=== PATIENT | female | born 1990 | race African-American/Black ===

== ENCOUNTER 2022-04-18 09:33 | Inpatient (IN) | payer OTHER ==
[~2022-04-18] VITALS: Ht 165.1 cm; Wt 150.3 kg
[2022-04-18 09:52] VITALS: BP 147/76
[2022-04-18 10:18] LABS: BASO % 0.7 % (0.0-1.0); EOS % 0.7 % (1.0-4.0); HEMATOCRIT 29.8 % (37.0-47.0); LYMPH # 2.3 10*3/uL (1.3-4.4); LYMPH % 40.9 % (27.0-41.0); MEAN CELL VOLUME 67.3 fl (81.0-99.0); MEAN CORPUSCULAR HGB 19.9 pg (27.0-31.0); MEAN CORPUSCULAR HGB CONC 29.5 g/dl (33.0-37.0); MONO # 0.6 10*3/uL (0.1-1.0); MONO % 10.7 % (3.0-9.0); NEUT # 2.6 10*3/uL (2.3-7.9); NEUT % 46.8 % (47.0-73.0); PLATELET COUNT AUTOMATED 203 10*3/uL (130-400); RED BLOOD COUNT 4.43 10*6/uL (4.10-5.10); RED CELL DISTRI WIDTH 20.6 % (0-14.5); WHITE BLOOD COUNT 5.5 10*3/uL (4.8-10.8)
[2022-04-18 10:21] LABS: BILIRUBIN Negative (Negative); BLOOD Negative (Negative); CLARITY Clear (Clear); COLOR Yellow (Yellow); GLUCOSE Negative (Negative); KETONE Negative (Negative); LEUKO ESTERASE Negative (Negative); NITRITE Negative (Negative); SPECIFIC GRAVITY <= 1.005 (1.001-1.030); UROBILINOGEN 0.2 E.U./dl (0.0-1.0)
[2022-04-18 10:33] LABS: ALKALINE PHOSPHATASE 68 U/L (45-117); BUN 5 mg/dl (7-24); CHLORIDE 105 mmol/L (98-107); CREATININE 0.91 mg/dL (0.55-1.02); SGOT/AST 22 IU/L (3-35); SGPT/ALT 31 U/L (12-78); SODIUM 138 mmol/L (136-145); TOTAL PROTEIN 7.5 gm/dL (6.4-8.2)
[2022-04-18 10:35] LABS: URINE AMPHETAMINES < 1000 (1000ng/ml); URINE BARBITURATES < 200 (200ng/ml); URINE BENZODIAZEPINES > 200 (200ng/ml); URINE CANNABINOIDS (THC) > 50 (50ng/ml); URINE COCAINE > 300 (300ng/ml); URINE METHADONE < 300 (300ng/ml); URINE OPIATES < 300 (300ng/ml)
[2022-04-18 10:47] LABS: ACETAMINOPHEN (TYLENOL) < 5.0 ug/ml (10-30)
[2022-04-18 10:47] LABS: URINE PHENCYCLIDINE < 25 (25ng/ml)
[2022-04-18 10:48] LABS: ETHYL ALCOHOL < 3.0 mg/dl (<3)
[2022-04-18 10:49] LABS: EPITHELIAL CELLS 0-2
[2022-04-18 18:00] VITALS: BP 160/89
[2022-04-18 20:00] VITALS: BP 147/70
[2022-04-19] VITALS: BP 154/69
[2022-04-19 05:46] LABS: ALKALINE PHOSPHATASE 61 U/L (45-117); BUN 6 mg/dl (7-24); CHLORIDE 105 mmol/L (98-107); CHOLESTEROL 110 mg/dL (<200); CREATININE 0.71 mg/dL (0.55-1.02); FREE T4 1.06 ng/dl (0.76-1.46); LDL CHOLESTEROL 63 mg/dL (9-159); POTASSIUM 3.9 mmol/L (3.5-5.1); SGOT/AST 14 IU/L (3-35); SGPT/ALT 25 U/L (12-78); SODIUM 137 mmol/L (136-145); TRIGLYCERIDES 49 mg/dl (<150)
[2022-04-19 05:51] LABS: THYROID STIM HORMONE (HS) 0.384 uIU/ml (0.358-4.75)
[2022-04-19 06:32] LABS: BASO % 0.5 % (0.0-1.0); EOS % 0.2 % (1.0-4.0); HEMATOCRIT 29.3 % (37.0-47.0); LYMPH % 31.6 % (27.0-41.0); MEAN CORPUSCULAR HGB 19.5 pg (27.0-31.0); MEAN CORPUSCULAR HGB CONC 28.7 g/dl (33.0-37.0); MONO # 0.4 10*3/uL (0.1-1.0); MONO % 6.6 % (3.0-9.0); NEUT # 3.9 10*3/uL (2.3-7.9); NEUT % 60.8 % (47.0-73.0); PLATELET COUNT AUTOMATED 179 10*3/uL (130-400); RED BLOOD COUNT 4.31 10*6/uL (4.10-5.10); RED CELL DISTRI WIDTH 20.5 % (0-14.5); WHITE BLOOD COUNT 6.4 10*3/uL (4.8-10.8)
[2022-04-19 08:00] VITALS: BP 160/71
[2022-04-19 12:00] VITALS: BP 173/94
[2022-04-19 16:00] VITALS: BP 153/80
[2022-04-19 20:00] VITALS: BP 132/68
[2022-04-20] VITALS: BP 137/71
[2022-04-20 08:00] VITALS: BP 141/80
[2022-04-20 12:00] VITALS: BP 141/98
[2022-04-20 15:44] VITALS: BP 159/72
[2022-04-20 20:00] VITALS: BP 131/57
[2022-04-21] VITALS: BP 145/92
[2022-04-21 08:00] VITALS: BP 124/65
[2022-04-21 12:00] VITALS: BP 135/61
== END 2022-04-21 13:30 | disposition home or self-care (01) | DRG 773 ==
LOC: ED 09:33 → EDHOLD 11:18 → 4E 11:18
PROVIDERS: Emergency Medicine; Student in an Organized Health Care Education/Training Program; ADMIT Family Medicine; ATTEND Family Medicine
DX: F11.23 Opioid dependence with withdrawal (principal); Z68.43 Body mass index [BMI] 50.0-59.9, adult; Z20.822 Contact with and (suspected) exposure to COVID-19; F12.10 Cannabis abuse, uncomplicated; F11.250 Opioid dependence with opioid-induced psychotic disorder with delusions; E66.01 Morbid (severe) obesity due to excess calories; F14.10 Cocaine abuse, uncomplicated; F13.10 Sedative, hypnotic or anxiolytic abuse, uncomplicated; D50.9 Iron deficiency anemia, unspecified; F13.139 Sedative, hypnotic or anxiolytic abuse with withdrawal, unspecified; Z80.0 Family history of malignant neoplasm of digestive organs; Z79.899 Other long term (current) drug therapy